=== PATIENT | female | born 1950 | race Caucasian/White ===

== ENCOUNTER 2022-09-02 13:21 | Emergency (ER) | payer BC, MEDICAID ==
[~2022-09-02] VITALS: Ht 149.9 cm; Wt 64.0 kg
[2022-09-02 13:27] VITALS: BP 171/84
[2022-09-02] MEDS ORDERED: ACETAMINOPHEN 325MG TABLET PO ONE (13:45)
[2022-09-02] MEDS ORDERED: TOPUD MT (15:54)
== END 2022-09-02 16:38 | disposition home or self-care (01) ==
LOC: ER 13:21
DX: R51.9 Headache, unspecified (principal); I10 Essential (primary) hypertension
CPT/HCPCS: 99284